=== PATIENT | male | born 1955 | race Caucasian/White ===

== ENCOUNTER 2017-11-26 11:14 | Outpatient (CLI) | payer OTHER, MEDICARE ==
[2017-11-26 13:18] LABS: Hemoglobin 14.8 g/dL (14.0-18.0); Mean Corpuscular Hemoglobin 33.1 pg (27.0-31.0); Mean Corpuscular Volume 91.9 fL (78.0-98.0); Mean Platelet Volume 7.5 fL (7.4-10.4); Platelet Count 220 thou/uL (130-400); RBC Distribution Width 11.7 % (11.5-14.5); Red Blood Cell (RBC) Count 4.49 mill/uL (4.70-6.10); White Blood Cell (WBC) Count 6.4 thou/uL (4.8-10.8)
[2017-11-26 13:23] LABS: PTT 32.3 SEC (22.9-36.1); Prothrombin Time 13.5 SEC (12.0-14.7)
== END 2017-11-26 11:15 | disposition home or self-care (01) ==
LOC: LABBT 11:14
PROVIDERS: ATTEND Neurological Surgery
DX: Z01.812 Encounter for preprocedural laboratory examination (principal); M48.061 Spinal stenosis, lumbar region without neurogenic claudication
CPT/HCPCS: 85027; 85610; 85730

== ENCOUNTER 2017-11-27 05:47 | Day surgery (SDC) | payer OTHER, MEDICARE ==
[2017-11-26 11:25] VITALS: BMI 32.5
--- NOTE | 2017-11-26 14:55 | HP ---
DATE OF ADMISSION: 11/27/2017 HISTORY OF PRESENT ILLNESS: Mr. Price is a 61-year-old male who presents with left hip pain and low b ack pain. He has had this pain for several months and this has gotten worse over time. The pain is worse with walking and with sitting to standing. He has had an L5-S1 fusion in the past with Dr. Osmany hinson. He has had his left hip evaluated by Dr. Harper and the symptoms that he was having seemed un likely that it is coming from his hip. The patient has a lumbar CT that shows a left-sided L1 bone s pur that may be causing some of his symptoms. There is no weakness in the lower extremities. Denies any bowel or bladder incontinence. REVIEW OF SYSTEMS: A 10-point review of systems has been completed and is negative other than stated above in the HPI. PAST MEDICAL HISTORY: Diabetes, hyperlipidemia, hyperthyroidism, hypertension, low testosterone, chr onic neck and back pain, spinal stimulator, obstructive sleep apnea, esophageal reflux, erectile dysf unction, neuropathy. PAST SURGICAL HISTORY: Uvulectomy, tonsillectomy and adenoidectomy, knee replacement, hip replacemen t, neck surgery, L5-S1 TLIF [place] [address] Ordonez, spinal stimulator placement, laparoscopic batool cystectomy, gastric bypass. FAMILY HISTORY: Father is , heart disease. Mother is . SOCIAL HISTORY: The patient is a former smoker, used to smoke about a pack a day, drinks alcohol occ asionally. Does not use any other illicit drugs. He is retired, with 2 children. He lives at home with a spouse. MEDICATIONS: Cymbalta, levothyroxine, calcium citrate, carbamazepine, testosterone injections, tamsu losin, Suboxone, omeprazole, potassium chloride extended release, hydrochlorothiazide, metoprolol, We llbutrin, tizanidine, MiraLax, . ALLERGIES: DAYPRO, ATORVASTATIN, BUTRANS. PHYSICAL EXAMINATION: EARS, NOSE, THROAT, MOUTH AND HEAD: Normocephalic, atraumatic. Hearing intact. Moist mucous membra lindsay. Trachea midline. No masses are noted. EYES: Pupils are equal, round and reactive to light. Extraocular movements are intact. Sclerae are not injected, not icteric. PSYCHIATRIC: Normal mood and affect. CARDIOVASCULAR: Regular rate and rhythm. No cyanosis or clubbing. RESPIRATORY: Even respirations, good effort. Lungs are clear. No wheezing. MUSCULOSKELETAL: Lower extremities 5/5 strength in bilateral iliopsoas, quadriceps, hamstrings, tibi isidro anterior and extensor hallucis longus. No sensory deficits bilaterally. Tender to palpate on t he midline lumbar spine. Left groin pain. NEUROLOGIC: Awake, alert and oriented to person, place and things. Cranial nerves II-XII are grossl y intact. Speech is fluent. Answers questions appropriately. Normal gait and station. IMAGING: CT myelogram, osteophyte at L1-L2, left posterior narrow lateral recess, some lateral steno sis at L2-L3, spinal stent placed, prior L5-S1 fusion . ASSESSMENT: Lumbar radiculopathy and left hip pain. PLAN: Mr. Price has had every surgical treatment he can for his symptoms and they remain. Dr. Ron washington had offered laminectomy L1 through L3. Informed consent, we have discussed the indications, risk s, benefits, alternatives and expected results from surgery. Risks discussed included, but were not limited to bleeding, infection, CSF leak, nerve damage, weakness, incontinence, cauda equina injury, arachnoiditis, paralysis, ventilator dependence, wheelchair dependence, loss of vision, cardiopulmona ry complications of anesthesia or . Long-term complications discussed and included, but were no t limited to spinal instability with the need for future surgery. The patient states he understands the risks and is willing to proceed with surgery.
[2017-11-27] MEDS ORDERED: Bupivacaine HCl 0.5%/Epinephrine 1:200,000/PF 30 ml Vial ONE (06:16)
[2017-11-27] MEDS ORDERED: Thrombin 5000 UNITS/5 ML VIAL ONE (06:16)
[2017-11-27] MEDS ORDERED: Sodium Chloride 0.9% 20 ML ONE (06:16)
[2017-11-27] MEDS ORDERED: HYDROmorphone 2 MG/ML VIAL ONE (06:43)
[2017-11-27] MEDS ORDERED: CEFAZOLIN/Water 2 GM/20 ML SYRINGE ONE ×2 (06:44→12:28)
[2017-11-27 06:51] LABS: Anion Gap 10 mmol/L (10-20); BUN (Urea Nitrogen) 22 mg/dL (8.4-25.7); Calc. Creatinine Clearance 102 mL/min (70-130); Calcium 9.1 mg/dL (7.8-10.44); Carbon Dioxide 30 mmol/L (23-31); Chloride 99 mmol/L (98-107); Estimated GFR-MDRD 70; Glucose 106 mg/dL (80-115); Potassium 3.4 mmol/L (3.5-5.1); Sodium 136 mmol/L (136-145)
[2017-11-27] MEDS ORDERED: Fentanyl 100 MCG/2 ML VIAL ONE (11:08)
--- NOTE | 2017-11-27 12:25 | OP ---
DATE OF PROCEDURE: 11/27/2017 SURGEON: Joel Ordonez M.D. COAL WHEELER: Jana Ford PA-C. PREOPERATIVE INDICATION: Treat pain, prevent neurological deterioration. PREOPERATIVE DIAGNOSES: Lumbar stenosis and lateral recess stenosis at L1-2 and L2-L3 with neurogeni c claudication, prior lumbar surgery, prior spinal stimulator implantation. POSTOPERATIVE DIAGNOSIS: Lumbar stenosis and lateral recess stenosis at L1-L2 and L2-L3 with neuroge matthias claudication, prior lumbar surgery, prior spinal stimulator implantation. OPERATIVE PROCEDURE: Decompressive laminectomy, medial facetectomy, foraminotomy at L1-2 and L2-3. PREOPERATIVE MEDICATION: Ancef 2 grams IV. DRAIN NUMBER: Zero. DRAIN TYPE: None. OPERATIVE DICTATION: The patient was brought to the operating room. General endotracheal anesthesia was induced. The patient was positioned prone on the operating table with his chest and hips suppor karine by gel-filled chest rolls. A lateral fluoro radiograph was used to plan an extension of his prev ious incision so that we could access from L1-L3 in the lumbar spine. The skin was sterilely prepped and draped. We opened with a 10 blade knife and controlled bleeding with bipolar cautery. We used monopolar cautery to dissect carefully through the subcutaneous tissues. We kept the spinal cord sti mulator wires in place, we encountered them superiorly and inferiorly. We dissected down to the fasc ia without tension on these wires. We incised the fascia in the midline and reflected the paraspinal muscles off the spinous process and lamina of L1, L2 and L3. Wires entered the fascia above the L1 spinous process. We left them in place and avoided them during the entire case. Self-retaining retr actors were placed and a lateral fluoro radiograph confirmed the levels upon which we were operating. I then used Adson and Kerrison rongeurs to fashion a laminectomy down the midline. High speed dril l was used to thin the bone on either side of the midline so that Kerrison rongeurs could widen the l aminectomy defect until we were flush with the L1, L2 and L3 pedicles. We performed a significant am ount of work in the medial facet joint on the left at L1-2, where a bone spur, a synovial cyst and o steophytes conspired to severely narrowing the lateral recess. With removal of the medial facets and yellow ligament the lateral recess at L1-2 and L2-3 were well decompressed. A Jimenez ball probe was used to assess the level of decompression and then we used foraminotomy Kerrisons to widen the essie en through which the L1, L2 and L3 nerve roots left the spine. At the completion of our decompressio n, a Jimenez ball could pass through the lateral recesses and out the foramina with the respective ner ve roots. We irrigated copiously with bacitracin irrigation. We controlled epidural bleeding with g entle bipolar cautery. We infused local anesthetic in the paraspinal muscles. We treated the wound with vancomycin powder. We closed the wound in anatomic layers. We applied a sterile dressing. Thi s was a clean case and no contamination.
== END 2017-11-27 13:25 | disposition home or self-care (01) ==
LOC: SDC 05:47
PROVIDERS: ATTEND Neurological Surgery
PROC: 01NB0ZZ Release Lumbar Nerve, Open Approach (ICD-10-PCS; principal; 2017-11-27)
DX: M48.062 Spinal stenosis, lumbar region with neurogenic claudication (principal); M46.06 Spinal enthesopathy, lumbar region; M25.78 Osteophyte, vertebrae; M71.38 Other bursal cyst, other site; E78.5 Hyperlipidemia, unspecified; E03.9 Hypothyroidism, unspecified; G89.29 Other chronic pain; M54.2 Cervicalgia; M54.9 Dorsalgia, unspecified; K21.9 Gastro-esophageal reflux disease without esophagitis; N52.9 Male erectile dysfunction, unspecified; E11.40 Type 2 diabetes mellitus with diabetic neuropathy, unspecified; M54.16 Radiculopathy, lumbar region; G47.33 Obstructive sleep apnea (adult) (pediatric); Z87.891 Personal history of nicotine dependence; Z79.899 Other long term (current) drug therapy; Z88.8 Allergy status to other drugs, medicaments and biological substances; Z98.1 Arthrodesis status
CPT/HCPCS: 76001; 80048; 85027; 85610; 85730; 96374; A4216; J0670; J1170; J3010; J3370; J3490

== ENCOUNTER → 2018-01-19 | Day surgery (SDC) | payer OTHER, MEDICARE ==
[2018-01-16 13:21] VITALS: BMI 29.5
[~2018-01-19] MED LIST: Iopamidol 300 61% 50 ML VIAL FS ONE
[2018-01-19 08:12] VITALS: BP 137/91; TEMP 98.3
--- NOTE | 2018-01-19 09:57 | RAD ---
FIVE VIEWS CERVICAL SPINE: History: Neck pain. FINDINGS: AP, lateral, swimmer's flexion and extension views demonstrate ACDF with fusion of the C5, C6, C7, an d T1 levels. Anterior plates and screws are in good position. There is extensive disc space height loss with anterior and posterior osteophytes seen at C4-5. Anter ior osteophytes also seen at C3 and C4 levels. IMPRESSION: ACDF as described above. No evidence of acute abnormality seen. POS: [facility]
--- NOTE | 2018-01-19 10:58 | RAD ---
CERVICAL MYELOGRAM: Date: 01/19/18 HISTORY: Cervical radiculopathy. Cervical spondylosis. EXPOSURE: 1.4 minutes. 1136.7 Gy*cm^2. COMPARISON: 11/08/13. FINDINGS: 2 VIEWS LUMBAR SPINE: Redemonstration of bilateral transpedicular screws at L5 and S1. No perihardware lucency. There are d orsal column stimulators which terminate at the distal thoracic spine. Laminectomy defect at L1, L2, and L3. Successful lumbar puncture. A total of 10 mL of Isovue-M300 contrast was administered intrathecally. The patient tolerated the procedure well. No immediate or postprocedure complications. TECHNIQUE: Consent obtained to perform a lumbar puncture for intrathecal contrast administration. The L2 level w as deemed appropriate. Skin was prepped and draped in the sterile fashion. 1% lidocaine, buffered wit h sodium bicarbonate, was used for local anesthesia. Under fluoroscopic guidance, a 22 gauge spinal n eedle was advanced into the CSF space. Inner stylette was removed. There was prompt flow of clear CSF into the hub of the needle. Contrast was administered. Contrast appeared to collect rather than flow freely. Needle was repositioned. There was still flow of CSF to the hub of the needle. Additional sm all amount of contrast was administered. Contrast would not flow freely away from the needle. Therefo re, the needle was removed and a second attempt was made at the L3 level. Contrast was administered i nto the thecal space, which did flow freely. There were no immediate postprocedure complications. IMPRESSION: Successful lumbar puncture for cervical myelogram. POS: [facility]
--- NOTE | 2018-01-19 11:28 | CT ---
POST MYELOGRAM CERVICAL SPINE CT: Date: 01/19/18 HISTORY: Cervical radiculopathy. Cervical spondylosis. COMPARISON: 06/28/15. TECHNIQUE: Post myelogram cervical spine CT is performed in the axial plane. Reformatted images are submitted fo r interpretation. FINDINGS: There is an anterior fusion plate with transvertebral body screws at C5, C6, and T1. The plate does b ridge the C7 level; however, there are no screws at C7. Rather, there appears to be a corpectomy with a bone plug. The cervical fusion hardware is not changed when compared to the previous exam. No cran iocervical dislocation. Lateral masses of C1 and C2 articulate appropriately. Appropriate articulatio n of the facets. Intact odontoid process. Soft tissue neck structures, upper mediastinum, and lung apices are unremarkable. C2-C3: There is a central disc osteophyte complex that abuts the thecal sac. Mild central canal sten osis. Neural foramina are patent bilaterally. C3-C4: Broad based disc osteophyte complex abuts the thecal sac. Ventral CSF signal intensity is sti ll maintained. Mild central canal stenosis. There is right facet hypertrophy. Degenerative changes in bilateral uncovertebral joints with resultant moderate bilateral foraminal narrowing. C4-C5: There is a central/left paracentral disc osteophyte complex. There is deformity of the left a spect of the thecal sac and deformity of the left aspect of the cord. Mild to moderate central canal stenosis. There is right facet hypertrophy. Moderate bilateral foraminal narrowing due to degenerativ e change of the uncovertebral joint. C5-C6: There is a broad based osteophyte ridge with a central component that deforms the ventral the nathalie sac. There is deformity of the ventral cord. At least mild central canal stenosis. Neural foramin a are patent. There is a prosthesis at the C5-C6 disc space. C6-C7: Corpectomy defect is identified. No high grade central canal stenosis. Patent neural foramina . C7-T1: No significant disc osteophyte complex. No significant central canal stenosis. Neural foramin a are patent bilaterally. There is severe right and moderate left foraminal narrowing at T1-T2. IMPRESSION: 1. Stable cervical fusion changes. 2. Central canal stenosis and foraminal narrowing as detailed above. POS: [facility]
== END ==
LOC: RAD 07:19
PROVIDERS: ATTEND Neurological Surgery
PROC: B01B1ZZ Fluoroscopy of Spinal Cord using Low Osmolar Contrast (ICD-10-PCS; principal; 2018-01-19)
DX: M47.22 Other spondylosis with radiculopathy, cervical region (principal); M25.78 Osteophyte, vertebrae; M48.02 Spinal stenosis, cervical region; M48.062 Spinal stenosis, lumbar region with neurogenic claudication; M47.816 Spondylosis without myelopathy or radiculopathy, lumbar region; F32.9 Major depressive disorder, single episode, unspecified; F41.9 Anxiety disorder, unspecified; E78.5 Hyperlipidemia, unspecified; E03.9 Hypothyroidism, unspecified; G47.33 Obstructive sleep apnea (adult) (pediatric); K21.9 Gastro-esophageal reflux disease without esophagitis; N52.9 Male erectile dysfunction, unspecified; E11.40 Type 2 diabetes mellitus with diabetic neuropathy, unspecified; Z79.899 Other long term (current) drug therapy; Z88.8 Allergy status to other drugs, medicaments and biological substances; Z98.1 Arthrodesis status; Z98.890 Other specified postprocedural states; Z99.89 Dependence on other enabling machines and devices
CPT/HCPCS: 62302; 72040; 72126